=== PATIENT | male | born 1995 | race African-American/Black ===

== ENCOUNTER 2016-10-07 14:42 | Emergency (ER) | payer BC ==
[~2016-10-07] VITALS: Ht 170.2 cm; Wt 65.8 kg
[2016-10-07 14:48] VITALS: BP 128/71
--- NOTE | 2016-10-07 15:17 | PHYS DOC ---
Past Medical History Past Medical History: No Pertinent History, Asthma Past Surgical History: No Surgical History Alcohol Use: None Drug Use: None Adult General Chief Complaint Chief Complaint: CHEST WALL PAIN HPI HPI Patient is a 21 year old male presents to the emergency department with complaints of intermittent left anterior chest pain with deep inspiration for the last 18 hours. Patient states he noted the pain yesterday evening and it resolved when he slept. He states that he felt fine when he awakened this morning. Approximately 2-3 hours ago he had episode of the intermittent chest pain, rated a 2 on a scale 1-10. He has no associated symptoms. No headache, lightheadedness, dizziness, nausea, vomiting, abdominal pain. Patient is pain- free at the time of ER evaluation. Review of Systems Review of Systems Constitutional: Denies fever or chills [] Eyes: Denies change in visual acuity, redness, or eye pain [] HENT: Denies nasal congestion or sore throat [] Respiratory: Denies cough or shortness of breath [] Cardiovascular: Left anterior chest pain with inspiration, no edema, no palpitations GI: Denies abdominal pain, nausea, vomiting, bloody stools or diarrhea [] : Denies dysuria or hematuria [] Musculoskeletal: Denies back pain or joint pain [] Integument: Denies rash or skin lesions [] Neurologic: Denies headache, focal weakness or sensory changes [] Endocrine: Denies polyuria or polydipsia [] Current Medications Current Medications Current Medications Medications (Trade) Dose Ordered Sig/Melissa Start Time Stop Time Status Last Admin Dose Admin Albuterol/ Ipratropium (Duoneb) 3 ml 1X ONCE 10/07/16 15:45 10/07/16 15:46 10/07/16 15:25 3 ML Allergies Allergies Allergies Coded Allergies Type Severity Reaction Last Updated Verified No Known Drug Allergies 10/07/16 No Physical Exam Physical Exam Constitutional: Well developed, well nourished, no acute distress, non-toxic appearance. [] HENT: Normocephalic, atraumatic, bilateral external ears normal, oropharynx moist, no oral exudates, nose normal. [] Eyes: PERRLA, EOMI, conjunctiva normal, no discharge. [] Neck: Normal range of motion, no tenderness, supple, no stridor. [] Cardiovascular:Heart rate regular rhythm, no murmur [] Lungs & Thorax: Bilateral breath sounds clear to auscultation, symmetrical chest wall movement with inspiration and expiration. No chest wall tenderness on exam. [] Abdomen: Bowel sounds normal, soft, no tenderness, no masses, no pulsatile masses. [] Skin: Warm, dry, no erythema, no rash. [] Back: No tenderness, no CVA tenderness. [] Extremities: no cyanosis, ROM intact, no edema. [] Neurologic: Alert and oriented X 3, normal motor function, normal sensory function, no focal deficits noted. [] Current Patient Data Vital Signs Vital Signs Date Time Temp Pulse Resp B/P (MAP) Pulse Ox O2 Delivery O2 Flow Rate FiO2 10/07/16 15:26 98 Room Air 10/07/16 14:48 97.4 65 18 128/71 (90) 97.4 EKG EKG EKG reviewed by Dr. Worley, emergency medicine doctor, no acute changes, no stemi. [] Radiology/Procedures Radiology/Procedures [][facility] [address] [place] [address] IMAGING REPORT Signed PATIENT: YAYO DENTON ACCOUNT: [id number] : 1995 LOCATION: ER AGE: 21 SEX: M EXAM STATUS: REG ER ORD. PHYSICIAN: CAITLIN NAQVI APRN REASON: Chest pain PROCEDURE: CHEST PA & LATERAL Chest, 2 views, 10/07/2016: History: Chest discomfort The heart size and pulmonary vascularity are normal. The lungs are clear. There is no evidence of pleural fluid. IMPRESSION: No acute cardiopulmonary abnormality is detected. DICTATED and SIGNED BY: ERIN GIANG MD DATE: 10/07/161527 CC: NO PCP; NON,STAFF; CAITLIN NAQVI APRN ~ Course & Med Decision Making Course & Med Decision Making 1538: DuoNeb treatment complete. Patient has no complaints. Lung sounds clear to auscultate throughout. Patient denies pain with deep inspiration. Pertinent Labs and Imaging studies reviewed. (See chart for details) [] Dragon Disclaimer Dragon Disclaimer This electronic medical record was generated, in whole or in part, using a voice recognition dictation system. Departure Departure Impression: Primary Impression: Pleuritic chest pain Disposition: HOME, SELF-CARE Condition: STABLE Referrals: [facility] Patient Instructions: CAITLIN Guzman APRN Oct 07, 2016 15:17
--- NOTE | 2016-10-07 15:31 | RAD ---
Chest, 2 views, 10/07/2016: History: Chest discomfort The heart size and pulmonary vascularity are normal. The lungs are clear. There is no evidence of pleural fluid. IMPRESSION: No acute cardiopulmonary abnormality is detected.
[2016-10-07] MEDS ORDERED: IPRATRPIUM/ALBUTEROL 0.5/2.5MG 3 ML NEBU. NEB ONE (15:45)
--- NOTE | 2016-10-08 06:11 | EKG ---
[facility] [address] [place] [address] Test Date: 2016-10-07 Test Time: 14:53:45 Pat Name: YAYO DENTON Department: Room: Gender: M [employer]ely Piloted Vehicle Controller: : 1995 Requested By: CAITLIN NAQVI Order Number: [id number] Reading MD: Cami Lara Measurements Intervals [place] Rate: 67 P: 74 NH: 176 QRS: 46 QRSD: 88 T: 42 QT: 332 QTc: 353 Interpretive Statements SINUS RHYTHM LEFT ATRIAL ABNORMALITY Electronically Signed On 10-09-2016 16:06:53 CDT by Cami Lara
== END 2016-10-07 15:47 | disposition home or self-care (01) ==
LOC: ER 14:42
DX: R07.81 Pleurodynia (principal); R07.1 Chest pain on breathing; J45.909 Unspecified asthma, uncomplicated
CPT/HCPCS: 71020; 93005; 94250; 94640; 99284; J7620

== ENCOUNTER 2017-03-22 10:08 | Emergency (ER) | payer BC ==
[2017-03-22 12:14] LABS: NEGATIVE OBC STREP NEG; POSITIVE OBC STREP POS
== END 2017-03-22 10:55 | disposition home or self-care (01) ==
LOC: ER 10:08
DX: J02.9 Acute pharyngitis, unspecified (principal); J45.909 Unspecified asthma, uncomplicated
CPT/HCPCS: 87070; 87880; 99283